=== PATIENT | male | born 1940 | race Caucasian/White ===

== ENCOUNTER 2021-12-13 20:13 | Emergency (ER) | payer OTHER, SELFPAY ==
[2021-12-13 20:22] VITALS: BP 178/76; PULSE 78; RESP 18; TEMP 36.7; O2SAT 98; BMI 25.6
--- NOTE | 2021-12-13 20:27 | DI.CT.S_ITS ---
PROCEDURE: CT HEAD/BRAIN WO CON INDICATIONS: fall TECHNIQUE: Noncontrast 4.5 mm thick angled axial sections acquired from the foramen magnum to the vertex, with coronal and sagittal reformats. For radiation dose reduction, the following was used: automated exposure control, adjustment of mA and/or kV according to patient size. COMPARISON: None. FINDINGS: Image quality: Excellent. CSF spaces: Basal cisterns are patent. No extra-axial fluid collections. There is moderate cerebral volume loss, with resultant ventricular and sulcal prominence. Brain: No intracranial hemorrhage, mass, or mass effect. There are subcortical, periventricular and deep white matter hypodensities consistent with mild chronic small vessel ischemic changes. The ramsay-white matter junction appears preserved. There is intracranial internal carotid artery atherosclerosis. Skull and face: Calvarium and visualized facial bones appear intact, without suspicious lesions. Sinuses: Visualized sinuses demonstrate mucosal opacification of the right sphenoid sinus. The remaining paranasal sinuses and mastoid air cells are clear. IMPRESSION: 1. No acute intracranial abnormality. 2. Moderate cerebral volume loss and mild chronic white matter small vessel ischemic changes. Dictated by: Lance De La Garza M.D. on 12/13/2021 at 21:06 Approved by: Lance De La Garza M.D. on 12/13/2021 at 21:09
--- NOTE | 2021-12-13 20:27 | DI.CT.S_ITS ---
PROCEDURE: CT CERVICAL SPINE WO CON INDICATIONS: fall TECHNIQUE: Noncontrast 3 mm thick sections acquired from the skull base to the T4 level. Sagittal and coronal reformats were then constructed. For radiation dose reduction, the following was used: automated exposure control, adjustment of mA and/or kV according to patient size. COMPARISON: None. FINDINGS: Image quality: Diagnostic. Bones: No fractures or subluxation. There is straightening of the cervical lordosis. Minimal anterolisthesis present at C4-C5 and T1-T2. There are scattered sclerotic foci within the thoracic spine which are nonspecific. Multilevel degenerative disc disease is present including moderate to severe degeneration at C5-C6 and C6-C7. There is also multilevel facet arthropathy with moderate degeneration at multiple levels on the right. Visualized superior ribs are intact. Soft tissues: Prevertebral soft tissues are normal in thickness. No paravertebral hematomas. No apical pneumothoraces. IMPRESSION: 1. No fracture or subluxation. 2. Multilevel degenerative changes as described. 3. Multiple sclerotic foci within the visualized thoracic spine are nonspecific but likely represent bone islands. Dictated by: Lance De La Garza M.D. on 12/13/2021 at 21:09 Approved by: Lance De La Garza M.D. on 12/13/2021 at 21:18
--- NOTE | 2021-12-13 20:27 | ED_ITS ---
HPI - Head Injury General Chief complaint: Head Injury Stated complaint: GLF with facial lac Time Seen by Provider: 12/13/21 20:14 Source: patient Mode of arrival: Ambulatory History of Present Illness HPI Narrative: 81-year-old gentleman with no significant medical history who is not on blood thinners stumbled over a step fell forward and landed on his forehead. He has a small laceration over the right brow an abrasion through the middle part of his nose. There was no presyncopal events he has not recently felt ill. He did not notice any palpitations or unusual physical signs prior to stumbling over the curb. He did not lose consciousness is not currently complaining of neck pain. He describes no other complaints of pain or tenderness in the upper extremities, knees, hips or back. Related Data Allergies Allergy/AdvReac Type Severity Reaction Status Date / Time No Known Drug Allergies Allergy Verified 12/13/21 20:22 Review of Systems Review of Systems Narrative: Remainder of complete review of systems is otherwise unremarkable except for that included in the HPI. Patient History Social History Smoking Status: Never smoker Smoking Status: Never smoker alcohol intake frequency: holidays/special occasions only Substance Use Type: does not use Exam Initial Vital Signs Initial Vital Signs: Vital Signs Temperature 98.1 F 12/13/21 20:22 Pulse Rate 78 12/13/21 20:22 Respiratory Rate 18 12/13/21 20:22 Blood Pressure 178/76 H 12/13/21 20:22 Pulse Oximetry 98 12/13/21 20:22 Oxygen Delivery Method 12/13/21 20:22 General: Healthy appearing, in no acute distress. Able to give a complete and coherent history. Well-nourished well-developed HEENT: Moist mucous membranes, normal sclera with reactive pupils, 3 cm laceration over the right brow. Neck: No midline tenderness, supple Respiratory: Lungs are clear to auscultation, no wheezing no rales no rhonchi. Full and symmetrical air movement Cardiac: Regular rate and rhythm no murmurs no bruits Abdomen: Soft, nontender, good bowel tones, no flank pain Skin: Warm and dry, no rashes Neurologic: Grossly neurologically intact with no obvious asymmetries or abnormalities Extremities: No trauma or abrasions to upper lower extremities, well perfused Psych: Cooperative, appropriate insight and affect Procedures Laceration Repair Forehead laceration: Time of procedure: 22:40 Site: face Side (If applicable): right Size (cm): 3 Description: flap Depth: involves muscle layer Local Anesthetic: lidocaine 2% and with epi Amount of anesthesia used (mL): 5 Pre-repair: wound explored, irrigated extensively and deep structures intact Skin layer closed with: nylon Skin layer suture size: 4-0 Number of sutures: 5 Technique: horizontal mattress Course Orders Ordered: ED Orders 12/13/21 20:27 CT cervical spine wo con Stat CT head/brain wo con Stat 12/13/21 21:08 EKG-12 Lead Stat Discontinued Medications Lidocaine/Epinephrine (Lidocaine 2% W/Epi Inj) 20 ml INJ INTRA-OP ONE Stop: 12/13/21 20:26 Vital Signs Vital signs: Vital Signs - 8 hr 12/13/21 20:22 Temperature 98.1 F Pulse Rate 78 Respiratory Rate 18 Blood Pressure 178/76 H Pulse Oximetry 98 Oxygen Delivery Method Room Air MDM - Head Injury Imaging Data CT scan - head: Radiologist's Impression: FINDINGS:? Image quality:? Excellent.? ? CSF spaces:? Basal cisterns are patent.? No extra-axial fluid collections.? There is moderate cerebral volume loss, with resultant ventricular and sulcal prominence.? ? Brain:? No intracranial hemorrhage, mass, or mass effect.? There are subcortical, periventricular and deep white matter hypodensities consistent with mild chronic small vessel ischemic changes.? The ramsay-white matter junction appears preserved.? There is intracranial internal carotid artery atherosclerosis.? ? Skull and face:? Calvarium and visualized facial bones appear intact, without suspicious lesions.? ? Sinuses:? Visualized sinuses demonstrate mucosal opacification of the right sphenoid sinus.? The remaining paranasal sinuses and mastoid air cells are clear. ? IMPRESSION:? ? 1. No acute intracranial abnormality. ? 2. Moderate cerebral volume loss and mild chronic white matter small vessel ischemic changes.? ? ? Dictated by: Lance De La Garza M.D. on 12/13/2021 at 21:06 ? ? CT - cervical spine: Radiologist's Impression: FINDINGS:? Image quality:? Diagnostic.? ? Bones:? No fractures or subluxation.? There is straightening of the cervical lordosis.? Minimal anterolisthesis present at C4-C5 and T1-T2.? There are scattered sclerotic foci within the thoracic spine which are nonspecific.? Multilevel degenerative disc disease is present including moderate to severe degeneration at C5-C6 and C6-C7.? There is also multilevel facet arthropathy with moderate degeneration at multiple levels on the right.? Visualized superior ribs are intact.? ? Soft tissues:? Prevertebral soft tissues are normal in thickness.? No paravertebral hematomas.? No apical pneumothoraces.? ? ? IMPRESSION:? ? 1. No fracture or subluxation. ? 2. Multilevel degenerative changes as described. ? 3. Multiple sclerotic foci within the visualized thoracic spine are nonspecific but likely represent bone islands. ? Dictated by: Lance De La Garza M.D. on 12/13/2021 at 21:09 ? ? [facility] Narrative Medical decision making narrative: 81-year-old gentleman with reports of mechanical fall forehead laceration. Because of his age in a good degree of injury CT scan of the head and cervical spine was felt to be appropriate. Fortunately both were unremarkable. Wound was repaired without difficulty. Patient is reassured. Pain is minimal GCS is 15 at time of discharge questions are answered and he is safe for discharge home Discharge Plan Departure Patient Disposition: Home Clinical Impression: Forehead laceration Qualifiers: Encounter type: initial encounter Qualified Code(s): S01.81XA - Laceration without foreign body of other part of head, initial encounter Acute head injury Qualifiers: Encounter type: initial encounter Qualified Code(s): S09.90XA - Unspecified injury of head, initial encounter Instructions: DI for Laceration Repair -- Simple Activity Restrictions/Additional Instructions: Thank you for coming in today With with your fall, we did a CT scan of your brain and your neck both of which were very reassuring we normal with no signs of injury. You do have a 3 cm cut to the right side of your forehead. There is a moderate amount of bleeding and the wound was closed with sutures for hemostasis. You need to have the stitches out on or about December 20 or . Feel free to return to the emergency department, see your primary care physician, or follow- up with an Urgent Care Clinic. Head lacerations where early become infected because there is so much blood flow. I do not think that you need antibiotics at this time. If you find that the area is becoming more tender, there is any drainage or increasing redness, you do need to be seen and re-evaluated. If you find that you are getting worse or develop any new symptoms, please feel free to return to the emergency department for further evaluation.
[2021-12-13] MEDS: LIDOCAINE 2% W/EPI INJ 20 ML INJ (22:39)
[2021-12-13 22:54] VITALS: BP 144/66; PULSE 77; O2SAT 94
== END 2021-12-13 22:55 | disposition home or self-care (01) ==
PROVIDERS: Emergency Provider Emergency Medicine
DX: S01.81XA Laceration without foreign body of other part of head, initial encounter (principal); W19.XXXA Unspecified fall, initial encounter
CPT/HCPCS: 13132; 70450; 72125; 93005; 93010; 99282; 99284